=== PATIENT | male | born 2000 | race Caucasian/White ===

== ENCOUNTER 2021-02-15 15:04 | Emergency (ER) | payer BC ==
--- NOTE | 2021-02-15 15:34 | EDM.PDOC ---
ED HPI GENERAL MEDICAL PROBLEM - General Chief Complaint: Exposure to Heat or Cold Stated Complaint: [facility] Time Seen by Provider: 02/15/21 15:11 Source of Information: Reports: Patient History Limitations: Reports: No Limitations - History of Present Illness INITIAL COMMENTS - FREE TEXT/NARRATIVE: 20-year-old male presents emergency department today via [facility]. He was in the [employer] mud run today located in [place]. This is an obstacle course race that is approximately 3 miles. Temperatures today are approximately 100 degrees. He states he was at the end of the race and in first place when he was crossing a river and he states he collapsed. He states he feels that he probably just pushed it too hard and was not adequately hydrated. He denies any history of cardiac issues or any significant medical history. He does not take any prescription medications. 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 He states he does have a slight headache however he denies any blurred vision, double vision, chest pain, shortness of breath or abdominal pain. Patient did receive approximately 1400 mL of IV fluids in route to the hospital. He states he was able to drink a little water in route as well. He reports that he is feeling much better and denies any nausea. - Related Data Allergies Allergy/AdvReac Type Severity Reaction Status Date / Time No Known Allergies Allergy Verified 02/15/21 15:09 Home Meds: Home Meds . [No Known Home Meds] 02/15/21 [History] Past Medical History HEENT History: Reports: Impaired Vision Other HEENT History: contacts - Past Surgical History Musculoskeletal Surgical History: Reports: Other (See Below) Other Musculoskeletal Surgeries/Procedures:: ACL reconstruction. Social & Family History - Tobacco Use Tobacco Use Status *Q: Never Tobacco User Second Hand Smoke Exposure: No - Caffeine Use Caffeine Use: Reports: Coffee - Recreational Drug Use Recreational Drug Use: No ED ROS GENERAL - Review of Systems Review Of Systems: Comprehensive ROS is negative, except as noted in HPI. ED EXAM, GENERAL - Physical Exam Exam: See Below Exam Limited By: No Limitations General Appearance: Alert, WD/WN, No Apparent Distress Eye Exam: Bilateral Eye: PERRL Ears: Normal External Exam, Hearing Grossly Normal Nose: Normal Inspection Throat/Mouth: Normal Inspection, Normal Lips, Normal Voice, No Airway Compromise Head: Atraumatic Neck: Normal Inspection, Supple Respiratory/Chest: No Respiratory Distress, Lungs Clear, Normal Breath Sounds, No Accessory Muscle Use, Chest Non-Tender Cardiovascular: Normal Peripheral Pulses, No Edema, No Murmur, Tachycardia Peripheral Pulses: 2+: Radial (L), Radial (R) GI/Abdominal: Normal Bowel Sounds, Soft, Non-Tender, No Distention (Male) Exam: Deferred Rectal (Males) Exam: Deferred Back Exam: Normal Inspection Extremities: Normal Inspection, Normal Range of Motion Neurological: Alert, Oriented, Normal Cognition Psychiatric: Normal Affect, Normal Mood Skin Exam: Warm, Dry, Intact, Normal Color, No Rash Lymphatic: No Adenopathy Course - Vital Signs Text/Narrative:: I have ordered a CBC, CMP, and magnesium level on this patient. He currently has about 300 mL of IV fluids remaining from the ambulance service. We will allow this infusion to be completed. I have also given him to Powerade's to drink. Last Recorded V/S: Last Vital Signs Temp 97.6 F 02/15/21 15:05 Pulse 102 H 02/15/21 15:05 Resp 32 H 02/15/21 15:05 BP 132/61 02/15/21 15:05 Pulse Ox 94 L 02/15/21 15:05 - Orders/Labs/Meds Orders: Active Orders 24 hr Category Date Time Status Sodium Chloride 0.9% [Normal Saline] 1,000 ml Med 02/15/21 17:14 Active IV ONETIME Medication Orders Sodium Chloride (Normal Saline) 1,000 mls @ 999 mls/hr IV ONETIME ONE Stop: 02/15/21 18:14 Labs: Laboratory Tests 02/15/21 02/15/21 Range/Units 16:28 16:28 WBC 22.72 H (4.23-9.07) K/mm3 RBC 5.10 (4.63-6.08) M/mm3 Hgb 15.0 (13.7-17.5) gm/dl Hct 44.1 (40.1-51.0) % MCV 86.5 (79.0-92.2) fl MCH 29.4 (25.7-32.2) pg MCHC 34.0 (32.2-35.5) g/dl RDW Std Deviation 39.1 (35.1-43.9) fL Plt Count 258 (163-337) K/mm3 MPV 10.1 (9.4-12.3) fl Neut % (Auto) 84.7 H (34.0-67.9) % Lymph % (Auto) 3.7 L (21.8-53.1) % [place] % (Auto) 11.0 (5.3-12.2) % Eos % (Auto) 0.1 L (0.8-7.0) Baso % (Auto) 0.1 (0.1-1.2) % Neut # (Auto) 19.24 H (1.78-5.38) K/mm3 Lymph # (Auto) 0.85 L (1.32-3.57) K/mm3 [place] # (Auto) 2.50 H (0.30-0.82) K/mm3 Eos # (Auto) 0.02 L (0.04-0.54) K/mm3 Baso # (Auto) 0.02 (0.01-0.08) K/mm3 Sodium 144 (136-145) mEq/L Potassium 3.9 (3.5-5.1) mEq/L Chloride 106 (98-107) mEq/L Carbon Dioxide 27 (21-32) mEq/L Anion Gap 14.9 (5-15) BUN 27 H (7-18) mg/dL Creatinine 1.6 H (0.7-1.3) mg/dL Est Cr Clr Drug Dosing 80.83 mL/min Estimated GFR (MDRD) 55 (>60) mL/min BUN/Creatinine Ratio 16.9 (14-18) Glucose 110 H (70-99) mg/dL Calcium 8.9 (8.5-10.1) mg/dL Magnesium 2.3 (1.8-2.4) mg/dL Total Bilirubin 0.4 (0.2-1.0) mg/dL AST 71 H (15-37) U/L ALT 73 H (16-63) U/L Alkaline Phosphatase 90 (46-116) U/L Total Protein 7.5 (6.4-8.2) g/dl Albumin 4.4 (3.4-5.0) g/dl Globulin 3.1 gm/dL Albumin/Globulin Ratio 1.4 (1-2) Meds: Medications Generic Name Dose Route Start Last Admin Trade Name Freq PRN Reason Stop Dose Admin Sodium Chloride 1,000 mls @ 999 mls/hr 02/15/21 17:14 Normal Saline IV 02/15/21 18:14 ONETIME ONE Discontinued Medications Generic Name Dose Route Start Last Admin Trade Name Freq PRN Reason Stop Dose Admin Ondansetron HCl 4 mg 02/15/21 17:14 Ondansetron 4 Mg/2 Ml Sdv IVPUSH 02/15/21 17:15 ONETIME ONE - Re-Assessments/Exams Free Text/Narrative Re-Assessment/Exam: 02/15/21 16:09 Still waiting for lab results. Patient states he was able to drink both bottles of Powerade and has not had any nausea. 02/15/21 17:20 Hematology reveals a WBC of 22.72, hemoglobin 15.0, hematocrit 44.1, platelet count 258, neutrophil percentage 84.7, chemistry reveals a sodium of 144, potassium 3.9, carbon dioxide 27, anion gap 14.9, BUN 27, creatinine 1.6, GFR 55, glucose 110, magnesium 2.3, AST 71, ALT 73, alk phos 90 Patient will receive another liter of IV fluids and Zofran as he is once again nauseated. I believe his white count is elevated due to a stress response. 02/15/21 17:23 Nursing staff reports that the patient is not wanting to receive his liter of IV fluids and only wants to receive his Zofran and then be discharged home. Departure - Departure Time of Disposition: 17:24 Disposition: Home, Self-Care 01 Condition: Good Clinical Impression: Heat exhaustion Qualifiers: Encounter type: initial encounter Qualified Code(s): T67.5XXA - Heat exhaustion, unspecified, initial encounter - Discharge Information Instructions: Heat Exhaustion Referrals: PCP,None [Primary Care Provider] - Forms: ED Department Discharge Additional Instructions: You were seen in the emergency department with heat exhaustion. You were given IV fluids and nausea medication. Your lab work did show an elevated white blood cell count however this is likely due to a stress response. Your kidney function tests were slightly elevated however this could also be due to dehydration. Recommend that you go home and rest and stay out of the sun. Drink plenty of fluids such as water, and Gatorade, and Powerade to replace your electrolytes. It may take a couple of days for you to feel back to normal. Recommend that you follow-up with primary care provider in about a week for further evaluation. Should your condition worsen or change, do not hesitate returning to emergency department. Sepsis Event Note (ED) - Evaluation Sepsis Screening Result: No Definite Risk - Focused Exam Vital Signs: Vital Signs Temp Pulse Resp BP Pulse Ox 02/15/21 15:05 97.6 F 102 H 32 H 132/61 94 L - My Orders Last 24 Hours: My Active Orders 02/15/21 17:14 Sodium Chloride 0.9% [Normal Saline] 1,000 ml IV ONETIME - Assessment/Plan Last 24 Hours: My Active Orders 02/15/21 17:14 Sodium Chloride 0.9% [Normal Saline] 1,000 ml IV ONETIME
[2021-02-15] MEDS ORDERED: Ondansetron 4 MG/2 ML SDV IVPUSH ONE (17:14)
[2021-02-15] MEDS ORDERED: Sodium Chloride 0.9% 1,000 ML IV ONE (17:14)
== END 2021-02-15 17:41 | disposition home or self-care (01) ==
LOC: SUPCPDRO 15:04 → JD.ED 15:04
DX: T67.5XXA Heat exhaustion, unspecified, initial encounter (principal)
CPT/HCPCS: 36415; 80053; 83735; 85025; 96374; 99284; J2405; 99283